=== PATIENT | female | born 1995 | race Caucasian/White ===

== ENCOUNTER 2024-02-29 00:52 | Emergency (ER) | payer MEDICAID, SELFPAY ==
--- NOTE | ~2024-02-29 | XR_ITS ---
EXAMINATION: XR KNEE, RIGHT CLINICAL INDICATION: Pain from injury COMPARISON: None TECHNIQUE: 2 views of the right knee. FINDINGS: Osseous alignment is anatomic, with relatively preserved joint spaces. No acute fracture is seen. Small chronic appearing calcifications noted in the superficial suprapatellar region. No significant effusion. XR/XR knee RT 2V IMPRESSION: No acute findings identified. Electronically signed by: Varun Campos MD 02/29/2024 02:03 AM EDT RP
--- NOTE | ~2024-02-29 | XR_ITS ---
EXAMINATION: XR KNEE, LEFT CLINICAL INDICATION: Pain from injury COMPARISON: None TECHNIQUE: 2 views of the left knee. FINDINGS: Osseous alignment is anatomic, with relatively preserved joint spaces. No acute fracture is seen. No significant effusion. XR/XR knee LT 2V IMPRESSION: No acute findings. Electronically signed by: Varun Campos MD 02/29/2024 02:01 AM EDT
[2024-02-29 00:57] VITALS: BP 124/84; PULSE 76; O2SAT 99
[2024-02-29 01:06] VITALS: BP 120/74; PULSE 80; RESP 20; TEMP 36.8; O2SAT 94; BMI 28.3
== END 2024-02-29 03:18 | disposition left against medical advice (07) ==
PROVIDERS: Emergency Provider Emergency Medicine
DX: S80.211A Abrasion, right knee, initial encounter (principal); W01.0XXA Fall on same level from slipping, tripping and stumbling without subsequent striking against object, initial encounter; M25.562 Pain in left knee; M25.561 Pain in right knee; Y93.9 Activity, unspecified; Y92.9 Unspecified place or not applicable; Y99.9 Unspecified external cause status
CPT/HCPCS: 73560; 99281